=== PATIENT | male | born 1960 | race Caucasian/White ===

== ENCOUNTER 2018-04-01 10:07 | Emergency (ER) | payer SELFPAY ==
[~2018-04-01] VITALS: Wt 90.0 kg
[2018-04-01] MEDS ORDERED: IBUP-1982 PO (10:57)
[2018-04-01] MEDS ORDERED: MECL12.574 PO (11:02)
[2018-04-01] MEDS ORDERED: IBUP-1542 PO (11:02)
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
[2018-04-01 12:24] VITALS: BP 158/82; PULSE 82; RESP 16
== END 2018-04-01 12:27 | disposition home or self-care (01) ==
LOC: E/R 10:07
DX: G44.309 Post-traumatic headache, unspecified, not intractable (principal); F07.81 Postconcussional syndrome; R40.2252 Coma scale, best verbal response, oriented, at arrival to emergency department; R40.2362 Coma scale, best motor response, obeys commands, at arrival to emergency department; R40.2142 Coma scale, eyes open, spontaneous, at arrival to emergency department
CPT/HCPCS: 70450; 82962; 93005